=== PATIENT | female | born 1955 | race Caucasian/White ===

== ENCOUNTER 2021-01-23 12:00 | Inpatient (IN) | payer MEDICARE, MEDICAID ==
[2021-01-23 12:25] LABS: #Basophils 0.1 10x3/uL (0.0-0.2); #Eosinphils 0.2 10x3/uL (0.0-0.5); #Monocytes 0.6 10x3/uL (0.0-1.1); #Neutrophils 7.6 10x3/uL (1.5-8.4); %Basophils 0.6 % (0.0-2.0); %Eosinophils 1.7 % (0.0-6.0); %Lymphocytes 11.6 % (18.0-47.0); %Monocytes 6.4 % (0.0-10.0); %Neutrophils 79.5 % (40.0-75.0); Hemoglobin 14.5 g/dL (12.0-15.5); Mean Corpuscular HGB CONC 34.4 g/dL (32.0-36.0); Mean Corpuscular Hemoglobin 29.2 pg (27.0-33.0); Mean Corpuscular Volume 85.1 fl (81.6-98.3); Mean Platelet Volume 9.5 fl (7.4-10.4); Platelet Count 216 10x3/uL (150-450); RBC Distribution Width 13.5 % (11.5-14.5); Red Blood Cell (RBC) Count 4.96 10x6/uL (3.90-5.03); White Blood Cell (WBC) Count 9.6 10x3/uL (3.5-10.5)
[2021-01-23] MEDS ORDERED: Ondansetron PF 4 MG/2 ML Vial ONE (12:25)
[2021-01-23] MEDS ORDERED: Atropine Sulfate 0.4 mg/1 ml Vial ONE (12:25)
[2021-01-23 12:41] LABS: ALT (SGPT) 12 U/L (8-55); AST (SGOT) 18 U/L (5-34); Albumin 4.3 g/dL (3.4-4.8); Alkaline Phosphatase 58 U/L (40-110); Anion Gap 13 mmol/L (10-20); BUN (Urea Nitrogen) 15 mg/dL (9.8-20.1); Bilirubin, Total 0.6 mg/dL (0.2-1.2); Calc. Creatinine Clearance 0 mL/min (70-130); Calcium 9.1 mg/dL (7.8-10.44); Carbon Dioxide 22 mmol/L (23-31); Chloride 108 mmol/L (98-107); Globulin 2.5 g/dL (2.4-3.5); Glucose 161 mg/dL (80-115); Lipase 29 U/L (8-78); Potassium 4.4 mmol/L (3.5-5.1); Protein, Total 6.8 g/dL (5.8-8.1); Sodium 139 mmol/L (136-145)
[2021-01-23] MEDS ORDERED: Midazolam HCl 2 mg/2 ml Vial ONE (12:53)
[2021-01-23] MEDS ORDERED: TICAGRELOR 90 MG TABLET ONE (13:12)
[2021-01-23 13:49] LABS: CKMB 1.9 ng/mL (0-6.6)
[2021-01-23] MEDS ORDERED: Fentanyl 100 MCG/2 ML VIAL ONE (14:12)
[2021-01-23] MEDS ORDERED: Atropine Sulfate 1 mg/10 ml Syringe ONE (15:01)
[2021-01-23 15:24] VITALS: BMI 29.7
[2021-01-23] MEDS: Sodium Chloride 0.9% 1,000 ML IV SCH (17:47)
[2021-01-23] MEDS: Fentanyl 100 MCG/2 ML VIAL SLOW IVP PRN ×3 (19:30→23:35)
[2021-01-23] MEDS ORDERED: THIOTHIXENE PO SCH (21:00)
[2021-01-23] MEDS: Topiramate 25 MG TAB PO SCH (22:05)
[2021-01-23] MEDS: Mirtazapine 15 MG TAB PO SCH (22:05)
[2021-01-23] MEDS: TICAGRELOR 90 MG TABLET PO SCH (22:05)
[2021-01-23] MEDS: clonazePAM 1 MG TAB PO SCH (22:05)
[2021-01-23] MEDS: Atorvastatin Calcium 40 MG TAB PO SCH (22:05)
[2021-01-23] MEDS: Doxepin HCl 25 MG CAP PO SCH (22:06)
[2021-01-24] MEDS: Sodium Chloride 0.9% 1,000 ML IV SCH ×3 (03:34→21:02)
[2021-01-24] MEDS ORDERED: Acetaminophen 325 MG TAB PO PRN (03:35)
[2021-01-24 04:24] LABS: #Basophils 0.1 10x3/uL (0.0-0.2); #Eosinphils 0.2 10x3/uL (0.0-0.5); #Monocytes 0.9 10x3/uL (0.0-1.1); #Neutrophils 6.4 10x3/uL (1.5-8.4); %Basophils 0.5 % (0.0-2.0); %Eosinophils 2.1 % (0.0-6.0); %Lymphocytes 21.7 % (18.0-47.0); %Monocytes 9.2 % (0.0-10.0); %Neutrophils 66.2 % (40.0-75.0); Hemoglobin 12.8 g/dL (12.0-15.5); Mean Corpuscular Hemoglobin 29.4 pg (27.0-33.0); Mean Corpuscular Volume 83.9 fl (81.6-98.3); Mean Platelet Volume 9.6 fl (7.4-10.4); Platelet Count 192 10x3/uL (150-450); RBC Distribution Width 13.9 % (11.5-14.5); Red Blood Cell (RBC) Count 4.36 10x6/uL (3.90-5.03); White Blood Cell (WBC) Count 9.6 10x3/uL (3.5-10.5)
[2021-01-24 04:49] LABS: ALT (SGPT) 12 U/L (8-55); AST (SGOT) 34 U/L (5-34); Albumin 3.9 g/dL (3.4-4.8); Alkaline Phosphatase 51 U/L (40-110); Anion Gap 13 mmol/L (10-20); BUN (Urea Nitrogen) 14 mg/dL (9.8-20.1); Bilirubin, Total 0.7 mg/dL (0.2-1.2); Calc. Creatinine Clearance 73 mL/min (70-130); Calcium 8.7 mg/dL (7.8-10.44); Carbon Dioxide 22 mmol/L (23-31); Chloride 108 mmol/L (98-107); Glucose 84 mg/dL (80-115); Potassium 3.6 mmol/L (3.5-5.1); Protein, Total 5.9 g/dL (5.8-8.1); Sodium 139 mmol/L (136-145)
[2021-01-24] MEDS: Fentanyl 100 MCG/2 ML VIAL SLOW IVP PRN ×3 (06:21→20:26)
[2021-01-24] MEDS: Topiramate 25 MG TAB PO SCH ×2 (08:47→20:29)
[2021-01-24] MEDS: TICAGRELOR 90 MG TABLET PO SCH ×2 (08:47→20:29)
[2021-01-24] MEDS: clonazePAM 1 MG TAB PO SCH ×2 (08:47→20:15)
[2021-01-24] MEDS: Aspirin Chewable 81 MG TAB PO SCH (08:47)
[2021-01-24] MEDS: Escitalopram Oxalate 20 mg Tablet PO SCH (08:47)
[2021-01-24] MEDS: Lisinopril 2.5 MG TAB PO SCH ×2 (08:48→20:13)
[2021-01-24 09:17] LABS: Troponin I 3.098 ng/mL (< 0.028)
[2021-01-24] MEDS ORDERED: clonazePAM 1 MG TAB PO PRN (15:06)
[2021-01-24] MEDS ORDERED: Nicotine 21 MG PATCH TOP SCH (18:30)
[2021-01-24] MEDS: Mirtazapine 15 MG TAB PO SCH (20:28)
[2021-01-24] MEDS: Atorvastatin Calcium 40 MG TAB PO SCH (20:28)
[2021-01-24] MEDS: Doxepin HCl 25 MG CAP PO SCH (20:28)
[2021-01-25] MEDS: Fentanyl 100 MCG/2 ML VIAL SLOW IVP PRN ×2 (01:25→06:19)
[2021-01-25 07:13] LABS: Cardiac Risk 5.4 (Less than 4.5)
[2021-01-25] MEDS: TICAGRELOR 90 MG TABLET PO SCH (08:09)
[2021-01-25] MEDS: Aspirin Chewable 81 MG TAB PO SCH (08:09)
[2021-01-25] MEDS: Lisinopril 2.5 MG TAB PO SCH (08:10)
[2021-01-25] MEDS: Topiramate 25 MG TAB PO SCH (08:10)
[2021-01-25] MEDS: Escitalopram Oxalate 20 mg Tablet PO SCH (08:10)
[2021-01-25 09:46] VITALS: TEMP 98
[2021-01-25 13:00] VITALS: BP 102/44
== END 2021-01-25 14:30 | disposition home or self-care (01) | DRG 246 ==
LOC: CSHERS 12:00 → CSHSDC 14:44 → CSHIMCU 14:45
PROVIDERS: ADMIT Specialist; ATTEND Specialist
PROC: 027236Z Dilation of Coronary Artery, Three Arteries with Three Drug-eluting Intraluminal Devices, Percutaneous Approach (ICD-10-PCS; principal; 2021-01-23)
PROC: 4A023N7 Measurement of Cardiac Sampling and Pressure, Left Heart, Percutaneous Approach (ICD-10-PCS; 2021-01-23)
PROC: B2111ZZ Fluoroscopy of Multiple Coronary Arteries using Low Osmolar Contrast (ICD-10-PCS; 2021-01-23)
PROC: B241ZZ3 Ultrasonography of Multiple Coronary Arteries, Intravascular (ICD-10-PCS; 2021-01-23)
DX: I97.190 Other postprocedural cardiac functional disturbances following cardiac surgery (principal); I21.A9 Other myocardial infarction type; T82.855A Stenosis of coronary artery stent, initial encounter; I25.10 Atherosclerotic heart disease of native coronary artery without angina pectoris; F17.210 Nicotine dependence, cigarettes, uncomplicated; E78.5 Hyperlipidemia, unspecified; J44.9 Chronic obstructive pulmonary disease, unspecified; F32.A Depression, unspecified; F41.9 Anxiety disorder, unspecified; F03.90 Unspecified dementia, unspecified severity, without behavioral disturbance, psychotic disturbance, mood disturbance, and anxiety; Z88.0 Allergy status to penicillin; Z95.5 Presence of coronary angioplasty implant and graft; Z88.2 Allergy status to sulfonamides; Z79.899 Other long term (current) drug therapy; Z91.19 Patient's noncompliance with other medical treatment and regimen
CPT/HCPCS: 36415; 71045; 80053; 80061; 82553; 83690; 84484; 85025; 85347; 92928; 92941; 92978; 92979; 93005; 93010; 93306; 93458; 96374; 97139; 99152; 99153; C1753; C1874; C1887; C9600; C9606; J0461; J2250; J2405; J3010; J7050

== ENCOUNTER 2021-12-02 16:20 | Emergency (ER) | payer MEDICAID, MEDICARE, OTHER ==
[2021-12-02] MEDS ORDERED: Acetaminophen 500 MG TAB ONE (17:31)
== END 2021-12-02 17:56 | disposition home or self-care (01) ==
LOC: CSHERS 16:20
DX: B37.2 Candidiasis of skin and nail (principal); I10 Essential (primary) hypertension; I25.2 Old myocardial infarction
CPT/HCPCS: 99282

== ENCOUNTER 2021-12-31 18:08 | Emergency (ER) | payer OTHER | END 2021-12-31 21:45 | disposition home or self-care (01) | LOC: CSHERS 18:08 | DX: B37.2 Candidiasis of skin and nail (principal); I25.2 Old myocardial infarction; I10 Essential (primary) hypertension; F17.290 Nicotine dependence, other tobacco product, uncomplicated; Z79.899 Other long term (current) drug therapy | CPT/HCPCS: 99283 ==

== ENCOUNTER 2022-10-19 10:44 | Emergency (ER) | payer OTHER ==
[2022-10-19] MEDS ORDERED: Dexamethasone 10 MG/ML VIAL ONE (11:32)
[2022-10-19] MEDS ORDERED: traMADol HCl 50 MG TAB ONE (11:32)
[2022-10-19] MEDS ORDERED: Ketorolac Tromethamine 30 MG/ML VIAL ONE (11:32)
[2022-10-19] MEDS ORDERED: Fluconazole 100 MG TAB PO SCH (11:45)
== END 2022-10-19 12:18 | disposition home or self-care (01) ==
LOC: CSHERS 10:44
DX: B37.89 Other sites of candidiasis (principal); L30.4 Erythema intertrigo; I10 Essential (primary) hypertension; F17.290 Nicotine dependence, other tobacco product, uncomplicated
CPT/HCPCS: 96372; 99282; J1100; J1885

== ENCOUNTER 2023-04-08 19:31 | Emergency (ER) | payer OTHER ==
[2023-04-08] MEDS ORDERED: Ketorolac Tromethamine 30 MG (1 mL) VIAL ONE (20:39)
== END 2023-04-08 21:28 | disposition home or self-care (01) ==
LOC: CSHERS 19:31
DX: M25.561 Pain in right knee (principal); M25.562 Pain in left knee; I10 Essential (primary) hypertension; F17.290 Nicotine dependence, other tobacco product, uncomplicated
CPT/HCPCS: 96372; 99283; J1885

== ENCOUNTER 2024-01-15 20:16 | Emergency (ER) | payer OTHER ==
[2024-01-15] MEDS ORDERED: Acetaminophen 325 MG TAB ONE (21:00)
[2024-01-15 21:07] LABS: #Basophils 0.03 10x3/uL (0.0-0.2); #Monocytes 0.73 10x3/uL (0.0-1.1); #Neutrophils 5.23 10x3/uL (1.5-8.4); %Basophils 0.4 % (0.0-2.0); %Eosinophils 2.9 % (0.0-6.0); %Lymphocytes 11.3 % (18.0-47.0); %Monocytes 10.4 % (0.0-10.0); %Neutrophils 74.6 % (40.0-75.0); Hematocrit 30.6 % (34.9-44.5); Hemoglobin 10.4 g/dL (12.0-15.5); Mean Corpuscular Hemoglobin 28.1 pg (27.0-33.0); Mean Corpuscular Volume 82.7 fL (81.6-98.3); Mean Platelet Volume 8.7 fL (7.4-10.4); Platelet Count 238 10x3/uL (150-450); RBC Distribution Width 15.1 % (11.5-14.5)
[2024-01-15 21:20] LABS: ALT (SGPT) Less than 7 U/L (8-55); AST (SGOT) 20 U/L (5-34); Albumin 3.2 g/dL (3.4-4.8); Alkaline Phosphatase 80 U/L (40-110); Anion Gap 13 mmol/L (10-20); BUN (Urea Nitrogen) 8 mg/dL (9.8-20.1); Bilirubin, Total 0.5 mg/dL (0.2-1.2); CK (CPK) 35 U/L (29-168); Calc. Creatinine Clearance 0 mL/min (70-130); Calcium 9.1 mg/dL (7.8-10.44); Carbon Dioxide 28 mmol/L (23-31); Chloride 100 mmol/L (98-107); Estimated GFR 65; Globulin 3.4 g/dL (2.4-3.5); Glucose 101 mg/dL (80-115); Lipase 57 U/L (8-78); Potassium 3.7 mmol/L (3.5-5.1); Protein, Total 6.6 g/dL (5.8-8.1); Sodium 137 mmol/L (136-145)
[2024-01-15] MEDS ORDERED: Ketorolac Tromethamine 30 MG (1 mL) VIAL ONE ×2 (22:17→22:22)
[2024-01-15 22:55] LABS: Bilirubin Neg (Negative); Blood, Urine Negative (Negative); Glucose, Urine (Dipstick) Normal (Negative); Ketone, Urine Negative (Negative); Leukocyte 100 (Negative); Nitrite Negative (Negative); Protein, Urine (Dipstick) Negative (Neg-Trace); Specific Gravity, Urine 1.005 (1.005-1.030); Urobilinogen Normal mg/dL (Less than 2)
[2024-01-15 23:04] LABS: Clarity Clear (Clear)
[2024-01-15 23:05] LABS: Bacteria/HPF 1+ HPF (None Seen); CAUTI Indications for Culture Fever or rigors; RBC/HPF 0-3 HPF (0-3)
[2024-01-15 23:06] LABS: Urine Culture Reflex No No
[2024-01-15] MEDS ORDERED: Cefdinir 300 MG CAP ONE (23:20)
== END 2024-01-16 00:23 | disposition home or self-care (01) ==
LOC: CSHERS 20:16
DX: N39.0 Urinary tract infection, site not specified (principal); R68.83 Chills (without fever); I10 Essential (primary) hypertension
CPT/HCPCS: 71045; 80053; 81001; 82550; 83690; 83735; 85025; 87428; 93005; J1885; 36415; 96372